=== PATIENT | male | born 1975 | race Caucasian/White ===

== ENCOUNTER 2024-04-02 13:14 | Emergency (ER) | payer OTHER ==
[2024-04-02 13:39] VITALS: BP 133/95; PULSE 92; RESP 18; TEMP 98.8; BMI 25.6
== END 2024-04-02 15:23 | disposition home or self-care (01) ==
LOC: FER 13:14
DX: S16.1XXA Strain of muscle, fascia and tendon at neck level, initial encounter (principal); M79.602 Pain in left arm; V89.2XXA Person injured in unspecified motor-vehicle accident, traffic, initial encounter; Y92.410 Unspecified street and highway as the place of occurrence of the external cause
CPT/HCPCS: 72050-TC-FY; 99283-25